=== PATIENT | male | born 1975 | race Caucasian/White ===

== ENCOUNTER 2018-02-16 00:36 | Emergency (ER) | payer OTHER ==
[~2018-02-16] VITALS: Ht 165.1 cm; Wt 68.0 kg
[2018-02-16 00:36] VITALS: BP 125/79
[2018-02-16] MEDS ORDERED: IV NORMAL SALINE 1,000ML 1,000 ML IV SCH (00:55)
--- NOTE | 2018-02-16 01:15 | EKG ---
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
[2018-02-16 02:10] LABS: BASO # 0.1 x10^3/uL (0.0-0.2); BASO % 1 % (0-3); EOS # 0.3 x10^3/uL (0.0-0.7); EOS % 2 % (0-3); HEMATOCRIT 28.7 % (39.0-53.0); HEMOGLOBIN 9.9 g/dL (13.0-17.5); LYMPH # 1.7 x10^3/uL (1.0-4.8); LYMPH % 14 % (24-48); MEAN CORPUSCULAR HEMOGLOBIN 32 pg (25-35); MEAN CORPUSCULAR HGB CONC 35 g/dL (31-37); MEAN CORPUSCULAR VOLUME 93 fL (79-100); MONO # 0.8 x10^3/uL (0.0-1.1); MONO % 7 % (0-9); NEUT # 8.8 x10^3uL (1.8-7.7); NEUT % 76 % (31-73); PLATELET COUNT 326 x10^3/uL (140-400); RED BLOOD COUNT 3.11 x10^6/uL (4.30-5.70); RED CELL DISTRIBUTION WIDTH 13.5 % (11.5-14.5); WHITE BLOOD COUNT 11.7 x10^3/uL (4.0-11.0)
[2018-02-16 02:22] LABS: ALBUMIN 3.5 g/dL (3.4-5.0); ALBUMIN/GLOBULIN RATIO 1.1 (1.0-1.7); GFR 81.2; POTASSIUM 3.9 mmol/L (3.5-5.1); TOTAL BILIRUBIN 0.4 mg/dL (0.2-1.0); TOTAL PROTEIN 6.7 g/dL (6.4-8.2)
--- NOTE | 2018-02-16 02:36 | RAD ---
INDICATION: Right leg pain and bruising with recent surgery COMPARISON: None. TECHNIQUE: Grayscale, color and doppler ultrasound images were obtained of the right lower extremity venous vasculature. RIGHT: No thrombus identified in the common femoral vein, femoral vein, popliteal vein or visualized calf veins. IMPRESSION: 1. No thrombus identified in deep venous system of right lower extremity. Electronically signed by: Surya Coleman MD (02/16/2018 2:33 AM) [facility]
--- NOTE | 2018-02-16 02:42 | PHYS DOC ---
Adult General Chief Complaint Chief Complaint: NEAR SYCOPE HPI HPI 42-year-old male with a history of recent diagnosis of testicular cancer with an orchiectomy performed approximately one week ago. Postoperatively patient had some complications of bleeding in his scrotum. At that time he had an episode of syncope. Since being discharged home patient has evolved bleeding on his right medial thigh extending down from his scrotum. Prior to arrival he experienced a sharp pain behind his right knee and had another episode of lightheadedness. His postoperative scrotal and incisional soreness has been consistent and without change. He has no fevers chills sweats or shaking chills. Incision is intact. Patient has never been formally diagnosed with vasovagal episodes that he is aware of. He has no history of arrhythmia or cardiac problems Review of Systems Review of Systems Constitutional: Denies fever or chills [] Eyes: Denies change in visual acuity, redness, or eye pain [] HENT: Denies nasal congestion or sore throat [] Respiratory: Denies cough or shortness of breath [] Cardiovascular: No additional information not addressed in HPI [] GI: Denies abdominal pain, nausea, vomiting, bloody stools or diarrhea [] : Denies dysuria or hematuria [] Musculoskeletal: Denies back pain or joint pain [] Integument: Denies rash or skin lesions [] Neurologic: Denies headache, focal weakness or sensory changes [] Endocrine: Denies polyuria or polydipsia [] All other systems were reviewed and found to be within normal limits, except as documented in this note. Current Medications Current Medications Current Medications Medications (Trade) Dose Ordered Sig/[facility] Start Time Stop Time Status Last Admin Dose Admin Sodium Chloride 1,000 ml @ 1,000 mls/hr Q1H 02/16/18 00:55 UNV Physical Exam Physical Exam Constitutional: Well developed, well nourished, no acute distress, non-toxic appearance. [] HENT: Normocephalic, atraumatic, bilateral external ears normal, oropharynx moist, no oral exudates, nose normal. [] Eyes: PERRLA, EOMI, conjunctiva normal, no discharge. [] Neck: Normal range of motion, no tenderness, supple, no stridor. [] Cardiovascular:Heart rate regular rhythm, no murmur [] Lungs & Thorax: Bilateral breath sounds clear to auscultation [] Abdomen: Bowel sounds normal, soft, no tenderness, no masses, no pulsatile masses. [] Skin: Warm, dry, no erythema, no rash. Healing incision right groin area clean and dry and intact with no dehiscence, fluctuance, crepitus, erythema, warmth, or drainage[] Back: No tenderness, no CVA tenderness. [] Extremities: No tenderness, no cyanosis, no clubbing, ROM intact, no edema, ecchymosis right proximal medial thigh with no focal tenderness or cords. Remainder of right lower extremity unremarkable Neurologic: Alert and oriented X 3, normal motor function, normal sensory function, no focal deficits noted. [] Psychologic: Affect normal, judgement normal, mood normal. [] Current Patient Data Lab Results Laboratory Tests Test 02/16/18 01:50 White Blood Count 11.7 x10^3/uL (4.0-11.0) H Red Blood Count 3.11 x10^6/uL (4.30-5.70) L Hemoglobin 9.9 g/dL (13.0-17.5) L Hematocrit 28.7 % (39.0-53.0) L Mean Corpuscular Volume 93 fL (79-100) Mean Corpuscular Hemoglobin 32 pg (25-35) Mean Corpuscular Hemoglobin Concent 35 g/dL (31-37) Red Cell Distribution Width 13.5 % (11.5-14.5) Platelet Count 326 x10^3/uL (140-400) Neutrophils (%) (Auto) 76 % (31-73) H Lymphocytes (%) (Auto) 14 % (24-48) L Monocytes (%) (Auto) 7 % (0-9) Eosinophils (%) (Auto) 2 % (0-3) Basophils (%) (Auto) 1 % (0-3) Neutrophils # (Auto) 8.8 x10^3uL (1.8-7.7) H Lymphocytes # (Auto) 1.7 x10^3/uL (1.0-4.8) Monocytes # (Auto) 0.8 x10^3/uL (0.0-1.1) Eosinophils # (Auto) 0.3 x10^3/uL (0.0-0.7) Basophils # (Auto) 0.1 x10^3/uL (0.0-0.2) EKG EKG EKG with normal sinus rhythm at 67 normal axis no STEMI interpreted by me[] Radiology/Procedures Radiology/Procedures Chest x-ray with chronic changes no acute disease interpreted by me.[] Course & Med Decision Making Course & Med Decision Making Pertinent Labs and Imaging studies reviewed. (See chart for details) Signs and symptoms consistent with suspected vasovagal episode which by history patient also experienced post procedurally. Patient is well-appearing and his vitals are stable and unremarkable. Full workup pending to rule out contributory etiology. EKG benign and ultrasound of the right lower extremity pending to rule out less likely possibility of DVT. Will follow results, correlate with clinical reevaluation for disposition Hemoglobin 9.9. No old records available. Patient is not aware of his previous hemoglobin values postoperatively. He's never been formally diagnosed with anemia. Patient is completely stable well appearing and ambulating around the emergency department on reevaluation prior to discharge. Discussed at length the patient's symptoms and history are consistent with vasovagal episodes. No further workup or treatment is indicated at this time. Patient agrees with outpatient follow-up with his primary care doctor as well as his urologist and strict return precautions given. [] Dragon Disclaimer Dragon Disclaimer This electronic medical record was generated, in whole or in part, using a voice recognition dictation system. Departure Departure: Impression: Primary Impression: Postoperative pain Additional Impressions: Pain of right lower extremity Vasovagal episode Disposition: 01 HOME, SELF-CARE Condition: GOOD Referrals: PAULO NIELSEN (PCP) Additional Instructions: It is not clear what caused her right leg discomfort this evening. An ultrasound of your leg shows no blood clot. It appears that you've experienced a vasovagal episode tonight causing your symptoms of lightheadedness. You have a mild anemia with a hemoglobin of 9.9. Continue your outpatient pain control regimen as prescribed as needed. Follow-up with your doctor and your urologist tomorrow for reevaluation and to discuss and arrange surveillance of your hemoglobin to rule out worsening anemia. Return immediately for new severe or worsening symptoms Problem Qualifiers JOSI AVILEZ MD February 16, 2018 02:42
[2018-02-16 03:02] LABS: BACTERIA,URINE 0 /HPF (0-FEW); BILIRUBIN,URINE NEG (NEG); CLARITY,URINE CLEAR; COLOR,URINE YELLOW; GLUCOSE,URINE NEG (NEG); NITRITE,URINE NEG (NEG); RBC,URINE 0 /HPF (0-2); SQUAMOUS EPITHELIAL CELL,UR OCC /LPF; UROBILINOGEN,URINE 0.2 mg/dL (0.2 mg/dL); WBC,URINE RARE /HPF (0-4)
--- NOTE | 2018-02-16 08:21 | RAD ---
Portable chest, 02/16/2018: HISTORY: Chest pain Comparison is made to a study from 01/08/2016. The heart size and pulmonary vascularity are normal. No pulmonary infiltrate is seen. There is no evidence of pleural fluid. IMPRESSION: No acute cardiopulmonary abnormality is detected. Electronically signed by: Bob Pike MD (02/16/2018 8:18 AM) [facility]
== END 2018-02-16 04:00 | disposition home or self-care (01) ==
LOC: ER 00:36
DX: R55 Syncope and collapse (principal); G89.18 Other acute postprocedural pain; M79.604 Pain in right leg; N99.821 Postprocedural hemorrhage of a genitourinary system organ or structure following other procedure; Z90.79 Acquired absence of other genital organ(s)
CPT/HCPCS: 36415; 71045; 80053; 81001; 84484; 85025; 93005; 93971; 96360; 99285-25; J7030

== ENCOUNTER → 2019-05-06 | Outpatient (CLI) | payer OTHER ==
--- NOTE | 2019-05-06 13:23 | RAD ---
EXAM: Cervical spine, 4 views; chest and right ribs, 4 views; pelvis and right hip, 3 views. HISTORY: Trauma. COMPARISON: None. FINDINGS: Cervical spine: 4 views of the cervical spine are obtained. There is slight reversal cervical lordosis. There is degenerative endplate remodeling with slight disc space narrowing at C5-C6. No fracture is seen. The prevertebral soft tissues are unremarkable. Chest and right ribs: A frontal view the chest and 3 views of the right ribs are obtained. There is no infiltrate, pleural effusion or pneumothorax. The heart is normal in size. No displaced rib fracture is seen. Pelvis and right hip: A frontal view the pelvis and frontal and frog-leg views the right hip are obtained. There is moderate to severe marginal femoral head osteophytosis. There is no acute fracture, dislocation or subluxation. IMPRESSION: 1. No acute osseous or pulmonary finding. 2. Mild degenerative change involving the cervical spine at C5-C6. 3. Moderate bilateral hip osteoarthritis. Electronically signed by: Brittany Soria MD (05/06/2019 1:21 PM) [place] [id number]
== END | disposition home or self-care (01) ==
LOC: PMG 12:23
PROVIDERS: ATTEND Registered Nurse
DX: M16.0 Bilateral primary osteoarthritis of hip (principal); M47.812 Spondylosis without myelopathy or radiculopathy, cervical region; M25.751 Osteophyte, right hip
CPT/HCPCS: 71101; 72040; 73502